=== PATIENT | male | born 1965 | race Caucasian/White ===

== ENCOUNTER → 2016-09-16 | Outpatient (CLI) | payer MEDICARE | END | disposition home or self-care (01) | LOC: US 09:53 | PROVIDERS: ATTEND Family Medicine | DX: Z53.21 Procedure and treatment not carried out due to patient leaving prior to being seen by health care provider (principal) ==

== ENCOUNTER 2019-11-02 16:28 | Emergency (ER) | payer MEDICARE ==
[~2019-11-02] VITALS: Ht 182.9 cm; Wt 200.0 kg
[2019-11-02 16:30] VITALS: BP 146/83
[2019-11-02] MEDS ORDERED: LIDOCAINE 1%/EPI 1:100,000 20 ML VIAL. IJ ONE (17:00)
--- NOTE | 2019-11-02 17:31 | PHYS DOC ---
Past History Past Medical History: Hypertension, Other Additional Past Medical Histor: NEUROPATHY Past Surgical History: Other Additional Past Surgical Histo: MULTIPLE FAILED ATTEMPTS MADE FOR GASTRIC BYPASS Alcohol Use: None Adult General Chief Complaint Chief Complaint: LACERATION/AVULSION HPI HPI Patient is a 54-year-old male who presents the emergency room with a laceration to his leg. Patient was using a shot grinder operator which hit his leg. He denies any other injuries. He denies any significant bleeding or pain. Unknown last tetanus shot. He states he has neuropathy in that leg at baseline and has no changes in sensation. He is able to walk on it without difficulty. Review of Systems Review of Systems General: Denies fever, chills, sweats, fatigue Eyes: Denies drainage, blurred vision, eye redness HENT: Denies rhinorrhea, sore throat, earache Respiratory: Denies cough, shortness of breath, wheezing Cardiac: Denies edema, palpitations, chest pain GI: Denies abdominal pain, Nausea, vomiting MSK: Denies back pain, neck pain Skin: Denies rash, jaundice Neuro: Denies headache, dizziness Psychiatric: Denies SI/HI Current Medications Current Medications Current Medications Medications (Trade) Dose Ordered Sig/Navjot Start Time Stop Time Status Last Admin Dose Admin Lidocaine/ Epinephrine (Xylocaine 1%-Epi 1:100,000) 20 ml 1X ONCE 11/02/19 17:00 11/02/19 17:21 DC 11/02/19 17:00 20 ML Allergies Allergies Allergies Coded Allergies Type Severity Reaction Last Updated Verified No Known Drug Allergies 11/02/19 No Physical Exam Physical Exam General: Awake, alert, NAD. Well Nourished, well hydrated. Cooperative HEENT: Atraumatic, EOMI, PERRL, airway patent, moist oral mucosa Neck: Supple, trachea midline Respiratory: CTA bilaterally, normal effort, no wheezing/crackles CV: RRR, no murmur, cap refill <2 GI: Soft, nondistended, nontender, no masses MSK: No obvious deformities Skin: Warm, dry, right lateral thigh: 5 cm laceration through subcutaneous fat Neuro: A&O x3, speech NL, sensory and motor grossly intact, no focal deficits Psych: Normal affect, normal mood, not suicidal or homicidal Current Patient Data Vital Signs Vital Signs Date Time Temp Pulse Resp B/P (MAP) Pulse Ox O2 Delivery O2 Flow Rate FiO2 11/02/19 16:30 96 20 146/83 (104) 94 Room Air EKG EKG [] Radiology/Procedures Radiology/Procedures [] Course & Med Decision Making Course & Med Decision Making Pertinent Labs and Imaging studies reviewed. (See chart for details) Patient presents with a laceration which was repaired without difficulty. Tetanus was updated. No other injuries. Patient has full range of motion and no change of sensation.patient's test results and vitals while in the ED were fully reviewed and discussed with the patient. Patient is stable and at this time does not need admission to the hospital. We have discussed strict return precautions and the importance of following up with their Primary Care Physician. Patient stated understanding and was given an opportunity to ask any questions. Patient is in agreement with plan. T Juan R Disclaimer Dragon Disclaimer This electronic medical record was generated, in whole or in part, using a voice recognition dictation system. Laceration/Wound Repair Progress Laceration Repair Performed by: Anjelica Balderas MD Consent: obtained verbally from patient. Risks and benefits were discussed prior to consent Time out performed prior to procedure Location: Right leg Length: 4 cm Foreign bodies: No foreign bodies Tendon involvement: none Neurovascularly intact Local anesthetic: lidocaine with epinephrine Anesthetic total: 6 ml Patient sedated: no Preparation: Patient was prepped and draped in usual sterile fashion. Wound was cleaned extensively with water Amount of clean: Moderate Deep stitches: no Skin closure: 3-0 Ethilon Number of sutures: 6 Technique: simple interrupted Approximation: closed Approximation difficulty: Minor Patient tolerated procedure well Departure Departure: Impression: Primary Impression: Laceration of leg Disposition: 01 HOME/RESIDENCE PRIOR TO ADM Condition: STABLE Referrals: SHARON OWENS MD (PCP) Patient Instructions: Laceration Care, Adult Justification of Admission: Justification of Admission: Justification of Admission Dx: N/A ANJELICA BALDERAS MD Nov 02, 2019 17:31
[2019-11-02] MEDS ORDERED: DIPH,PERTUSS(ACELL),TET VAC/PF 0.5 ML SYRINGE. VAX IM ONE (18:00)
== END 2019-11-02 17:50 | disposition home or self-care (01) ==
LOC: ER 16:28
DX: S81.811A Laceration without foreign body, right lower leg, initial encounter (principal); I10 Essential (primary) hypertension; Z98.84 Bariatric surgery status; W29.0XXA Contact with powered kitchen appliance, initial encounter; Y93.89 Activity, other specified; Y92.89 Other specified places as the place of occurrence of the external cause; Y99.8 Other external cause status
CPT/HCPCS: 12002; 90471; 90715; 99283